=== PATIENT | female | born 1970 | race Caucasian/White ===

== ENCOUNTER 2016-09-09 07:27 | Observation (INO) | payer OTHER ==
[2016-09-09] MEDS ORDERED: NS 0.9% 1000 ML* 1,000 ML IV ONE (07:56)
[2016-09-09 08:20] LABS: Hematocrit 37 % (35-47); Hemoglobin 12.1 g/dl (12.0-16.0); Mean Corpuscular HGB Conc 32 g/dl (31-36); Mean Corpuscular Hemoglobin 28 pg (27-31); Mean Corpuscular Volume 87 fL (80-97); Mean Platelet Volume 10 um3 (7.4-10.4); Red Cell Distribution Width 15 % (10.5-15); White Blood Count 8.5 10^3/ul (3.5-10.8)
[2016-09-09 08:36] LABS: ALT 22 U/L (7-52); Albumin 3.8 g/dL (3.2-5.2); Alkaline Phosphatase 42 U/L (34-104); BUN/Creatinine Ratio 20.4 (8-20); Blood Urea Nitrogen 20 mg/dL (6-24); CO2 Carbon Dioxide 24 mmol/L (22-32); Calcium 8.8 mg/dL (8.6-10.3); Chloride 105 mmol/L (101-111); EGFR African American 78.2 (>60); EGFR Non-African American 60.8 (>60); Globulin 2.7 g/dL (2-4); Glucose 120 mg/dL (70-100); Sodium 136 mmol/L (133-145); Total Protein 6.5 g/dL (6.4-8.9)
[2016-09-09 09:03] LABS: Alcohol < 10 mg/dL (<10)
[2016-09-09 09:12] LABS: TSH (Thyroid Stimulating Horm) 1.59 mcIU/mL (0.34-5.60)
[2016-09-09 09:14] LABS: AST 28 U/L (13-39); Anion Gap 7 mmol/L (2-11); Potassium 4.5 mmol/L (3.5-5.0)
--- NOTE | 2016-09-09 10:04 | RAD ---
Indication: Seizure. CT of the brain was performed without IV contrast. Ventricular structures are midline. No midline shift is noted. The extra-axial spaces are unremarkable. There is no evidence of intracranial mass or hemorrhage. No other high or low density lesions are identified. No other high or low density lesions are noted. Mastoid air cells and paranasal sinuses are otherwise unremarkable. IMPRESSION: THERE IS NO EVIDENCE OF INTRACRANIAL MASS OR HEMORRHAGE.
[2016-09-09 11:25] LABS: Urine Bacteria Absent (Absent); Urine Bilirubin Negative (Negative); Urine Glucose Negative (Negative); Urine Nitrite Negative (Negative)
[2016-09-09] MEDS ORDERED: Acetaminophen TAB* 325 MG PO PRN (11:54)
[2016-09-09 12:24] LABS: Lithium < 0.10 mmol/L (0.6-1.2)
--- NOTE | 2016-09-09 13:37 | HP ---
HOSPITAL MEDICINE HISTORY AND PHYSICAL: DATE OF ADMISSION: 09/09/16 PRIMARY CARE PHYSICIAN: Dr. Ashraf. ATTENDING PHYSICIAN: Herberth Ceja MD *(dictation provided by Annabel Wyatt NP) CHIEF COMPLAINT: Question of seizure with altered mental status. HISTORY OF PRESENT ILLNESS: Ms. Macedo is a 46-year-old female with 2 admissions to our psychiatric unit for suicide attempt with overdose in 2016 with a history of severe borderline personality disorder who presents to the hospital today with concern for seizure. Per Ms. Macedo, she states that she was in an argument with her last evening, he lives in a RV in the front yard and had asked to come into the house because of the weather being so cold. She reports a lot of stress related to this. She was able to sleep through the night but woke up and "was in a bad way." She went out to see her in the RV and they got into an argument. She states it was not abusive or physical. She did not remember exactly, but she states that her told her that she was having a seizure. She remembers EMS picking her up and bringing her to the hospital. She states that the EMS provider was "very nice. " She denies any recent illnesses. She has had no fevers, no chills, no cough , no chest pain. No nausea, abdominal pain, or diarrhea. Ms. Macedo has had concern for seizures for some time back in 2016. She was reporting that she had up to 55 absence seizures a day. She was seen here in consultation by Dr. Munoz from Neurology who evaluated her and obtained an MRI and suspected that she did not in fact have seizures, but that she was likely having pseudoseizures or other manifestation of her psychiatric problems. He recommended that she go up to [place] for monitoring. Per Ms. Macedo, she did go for 3 days to [place] for long-term EEG monitoring and she states that nothing was found during that testing. She has an ongoing concern for Lyme disease as well and is currently taking doxycycline. In the emergency room, Ms. Macedo had normal laboratory values except for a mild elevation in her lactic acid at 2.7. EEG is underway and the patient has been seen by Dr. Covarrubias from Neurology. PAST MEDICAL HISTORY: 1. Suicide attempt x2. 2. Borderline personality disorder. 3. Question of pseudoseizures in the past. MEDICATIONS: The patient was unable to verify her medication list, but per the pharmacist at [facility], she is on: 1. Alprazolam 1 mg p.o. t.i.d. p.r.n. 2. Adderall 10 mg p.o. b.i.d. 3. Saphris 10 mg sublingually at bedtime. 4. Doxycycline 100 mg p.o. b.i.d. 5. Diazepam 20 mg p.o. b.i.d. 6. Fluoxetine 40 mg p.o. daily. 7. Lamotrigine 400 mg p.o. at bedtime. 8. [place] 300 mg p.o. b.i.d. ALLERGIES: No known drug allergies. FAMILY HISTORY: The patient states her mom and dad are still alive, but she does not know of any health history with them. SOCIAL HISTORY: No report of alcohol, tobacco, or drug use. The patient is estranged from her , but states that he would be her healthcare proxy. REVIEW OF SYSTEMS: A 14-point review of systems was completed with Ms. Macedo and all those not mentioned above were negative. PHYSICAL EXAMINATION GENERAL: Ms. Macedo is lying in the bed, she is a little bit incoherent at times. She had received Versed in the ambulance, but she is clear and able to carry on the conversation. VITAL SIGNS: Temperature 98.2, heart rate 88, respiratory rate 20, O2 saturation 97%, blood pressure 114/70. LUNGS: Clear to auscultation bilaterally with no accessory muscle use and good aeration. HEART: S1, S2. No murmur, rub, or gallop and regular. ABDOMEN: Soft, nontender with bowel sounds positive x4. EXTREMITIES: No cyanosis or edema. SKIN: Intact. NEUROLOGIC: She is alert. She is oriented x3. She moves all extremities equally. There is no facial asymmetry or focal weakness. Extraocular movements are intact. LABORATORY DATA/DIAGNOSTIC STUDIES: WBC 8.5, hemoglobin 12.1, hematocrit 37, platelet count 260. INR 0.98. Sodium 136, potassium 4.5, chloride 105, serum bicarbonate 24, BUN 20, creatinine 0.98, glucose 120, lactic acid 2.7. Urine shows trace leukocyte esterase. Serum alcohol level is 0. Lamotrigine and lithium levels are pending. CT of the brain shows no acute process. ASSESSMENT: Ms. Macedo is a 46-year-old female with a past medical history of 2 hospitalizations for overdose and borderline personality disorder who has a suspicion for pseudoseizures in the past and presents today with concern for a witnessed seizure activity per her . Plans are for observation in the hospital for the followin. Question of seizure: I do note that the patient's reported seizure activity was in the setting of severe stress in relationship to an argument with her that had been going on overnight. Regardless, plans are for EEG, which is underway now, Dr. Covarrubias from Neurology is also consulting to help us determine if this was in fact a real seizure or perhaps a manifestation of pseudoseizure. We will continue her home medications. Lamictal level is pending but will likely not be back till tomorrow. [place] level is also pending. 2. Psychiatric disorder. Again, continue Lamictal and lithium. I am holding her alprazolam, Adderall and diazepam for now as she is still somewhat sedated from Versed received en route to the hospital. 3. Lyme disease. I have no indication that the patient has a clear diagnosis of Lyme disease and certainly not an acute diagnosis. Plans are to hold doxycycline. The patient can follow up with her outpatient providers as needed. 4. DVT prophylaxis with mobility. 5. Disposition to Medical. ANNABEL WYATT NP CC: Dr. Ashraf* [id number]/[facility] #: [id number] TARI
--- NOTE | 2016-09-09 14:35 | CONS ---
CC: Alvino Ashraf MD NEUROLOGY CONSULTATION: DATE OF CONSULT: 09/09/16 REQUESTING PHYSICIAN: Dr. Jiménez in the ED. PRIMARY CARE PHYSICIAN: Alvino Ashraf MD. REASON FOR CONSULT: Seizure. HISTORY OF PRESENT ILLNESS: The patient is a 46-year-old female who was brought to the hospital after her called the EMS this morning reporting that the patient having a seizure. The information and history is gathered by some history taken from the patient and also information from her previous medical records at the [facility] medical records (no other outside records are available at this time). I have to mention that when I was trying to get history from the patient she seemed to be not fully back to her baseline and at times she was lethargic and falling asleep in the middle of conversation , or suddenly mumbling, so the full reliability of her statements is in question. Per the records, the patient had a history of seizures before. The patient tells me that she started to have seizures in 2014. She states that she usually has an aura before her seizures but is not able to provide me details of her aura. She says her last seizure was in March 2016. Looking at her medical records, it seems like she had an episode of over dosing of Lamictal and Valium (suicidal attempt) back in March 2016 and was admitted to the psych unit. At that time her had reported of up to 50 per day episodes of staring, and a Neurology consult at that time raised the question of nonepileptic seizures and recommended a long-term monitoring unit after her psychiatric issues are addressed. The patient, per the records, seems have been carrying a diagnosis of Lyme disease; however, the details of the workup and diagnosis are not very clear. Per a note from Dr. 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 The patient tells me that she is still taking doxycycline but is not able to tell me the dosage. She states that she had an MRI in the past and when I look at her records, she had an MRI in March 2016, which did not show any abnormalities. She denies having a lumbar puncture in the past. She states that she is taking Lamictal at 100 mg b.i.d.but that is mostly for her mood, she says. PAST MEDICAL HISTORY: Significant for: 1. Psychiatric diagnosis of severe borderline personality disorder. 2. As mentioned, supposedly carrying a diagnosis of chronic Lyme disease with no clear documentation of the workup 3. She has a history of alcohol dependence since 24 years old, on and off. ALLERGIES: No known drug allergies. FAMILY HISTORY: Unknown at this time. SOCIAL HISTORY: As mentioned, she seem to be on medical leave based on presumably Lyme disease now and as being mentioned, there is history of alcohol dependence. REVIEW OF SYSTEMS: A complete review of systems was performed, but the patient is not able to answer all the questions. For the most part, other than what mentioned in the HPI is negative currently. PHYSICAL EXAMINATION: Blood pressure, when I examined the patient was 114/71, heart rate 88, respiratory rate 16 and temperature 98.2. The patient currently is drowsy; however, arousable with light verbal stimulation. Her speech is slow and slightly slurred. It seems like she is still lethargic and her speech at times does not make sense; however, she answers most questions slowly but appropriately. In the middle of her answers, sometimes she may mumble or states things that do not make quite perfect sense. She is oriented to year but not to month or day. She is oriented to place and self. Pupils are symmetric and reactive to light. Extraocular movements are intact. Face is symmetric. Tongue is in midline. No clear laceration is seen in the tongue. There is probably some perioral swelling. Strength seem full and 5/5 throughout as much as the patient is cooperative. Sensation grossly is intact to light touch and pinprick in the upper and lower extremities. LABORATORY DATA: WBC 8.5, hemoglobin 12.1, hematocrit 37, platelets 260. INR was 0.98. Sodium 136, potassium 4.5, chloride 105, BUN 20, creatinine 0.98, glucose 120, AST 28, ALT 22, alkaline phosphatase 42, magnesium 2. Urine is negative. Toxicology shows lithium less than 0.1 and alcohol serum less than 10. No other urine toxicology results is available at this time. IMAGING: A CT scan of the head unremarkable and as mentioned, she had an MRI in March 2016, which was also unremarkable. The level of lamotrigine is pending. ASSESSMENT AND PLAN: The patient is a 46-year-old female with a supposedly diagnosis of Lyme disease, which as mentioned above, the exact history or documentation of that is unclear. The history of her seizures is also unclear. Patient mentions she had a history of seizures in the past but is on lamotrigine mostly for her mood. Considering the previous history of overdose of medications including lamotrigine, and also suspicion of non-epileptic seizures in the past, I am not certain whether today's episode was also an epileptic seizure or not, or whether she had any overdose of her medications causing current lethargy. An EEG done today did not show any epileptiform discharges and the recording was in fact normal. Until further history becomes available and the patient becomes more coherent, I would continue just the current home medications and will await the result of the lamotrigine level for further recommendations for AEDs. She probably needs a terminal system operator continuous video-EEG monitoring for characterization of her events, if they are frequent enough to be captured. Neurology will follow. [id number]/[facility] #: [id number] TARI
--- NOTE | 2016-09-09 16:25 | PN ---
Progress Note - Progress Note Note: Annabel Edmundo asked me to help evaluate this patient for capacity as her wanted to take her to [facility] for admission. In the room the was verbally aggressive and did not want me to ask too many questions of the patient. I did note that she was alert and oriented x 3. She did initially say she agreed that she wanted to go to [place] but then there was concern by the nurse that she seem to feel intimidated by her . Indeed she apparently had an argument with him after I left the room and then he stormed out saying he was done with her. I came back in and she said she wanted to stay at [facility] and did not want her back in the room. I honored her wishes and he was escorted out of the building.
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
[2016-09-09] MEDS ORDERED: lamoTRIgine TAB(*) 100 MG PO SCH (21:00)
[2016-09-09] MEDS: Lithium Carbonate TAB* 300 MG PO SCH (22:10)
--- NOTE | 2016-09-09 22:29 | EEG ---
CC: Dr. Ashraf ELECTROENCEPHALOGRAPHY: DATE OF STUDY: 09/09/16 REQUESTING PHYSICIAN: Dr. Jiménez in the ED. CLINICAL PROBLEM: The patient is an 46-year-old female with and extensive psychiatric history in the past and supposedly Lyme disorder who presented with probably a breakthrough seizure. She has been having a prolonged postictal state, that is why an EEG was ordered to rule out subclinical seizures. REPORT: This digital EEG was recorded using 21 scalp and ear, and two EKG electrodes. It was reviewed in referential and bipolar montages following reformatting in the 10-20 international electrode placement system. In the most stimulated state, the background consists of 25-35 microvolts, 8-9 Hz posterior dominant rhythm with adequate reactivity to eye opening. Faster frequencies including 5-15 microvolts, 12-20 Hz activity seen in the frontal leads. During drowsiness, there is emergence of theta and delta rhythms, but no clear sleep was achieved during this study. CLINICAL IMPRESSION: This routine EEG in the awake and drowsy states is within the range of normal variation. COMMENT: Lack of epileptiform discharges does not necessarily exclude the clinical diagnosis of epilepsy. Clinical coordination is recommended. [id number]/[facility] #: [id number] MTDD
[2016-09-10 08:09] VITALS: BP 101/70
[2016-09-10] MEDS: Lithium Carbonate TAB* 300 MG PO SCH (08:21)
[2016-09-10] MEDS ORDERED: FLUoxetine CAP* 20 MG PO SCH (09:00)
[2016-09-10] MEDS ORDERED: Benzocaine/Menthol LOZ* 1 LOZENGE MT PRN (09:52)
[2016-09-10] MEDS ORDERED: DOXYcycline CAP(*) 100 MG PO ONE (10:08)
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
== END 2016-09-10 12:30 | disposition left against medical advice (07) ==
LOC: ED 07:27 → MED 10:17
PROVIDERS: ADMIT Hospitalist; ATTEND Hospitalist
DX: R41.82 Altered mental status, unspecified (principal); R74.0 Nonspecific elevation of levels of transaminase and lactic acid dehydrogenase [LDH]; F60.3 Borderline personality disorder; F10.20 Alcohol dependence, uncomplicated; G40.909 Epilepsy, unspecified, not intractable, without status epilepticus; Z79.899 Other long term (current) drug therapy; Z87.891 Personal history of nicotine dependence
CPT/HCPCS: 36415; 70450; 80053; 80175; 80178; 80320; 81003; 81015; 83605; 83735; 84443; 85025; 85610; 87086; 93005; 95816; 96360; 99285; A9270-GY; G0378; G0480

== ENCOUNTER 2016-10-04 10:17 | Emergency (ER) | payer OTHER ==
[2016-10-04 11:15] VITALS: BP 122/86
[2016-10-04 11:54] LABS: Benzodiazepine Urine Screen Presumptive Positive (None Detect)
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
[2016-10-04 12:20] LABS: Urine Bacteria 1+ (Absent); Urine Bilirubin Negative (Negative); Urine Glucose 1+(50 mg/dL) (Negative); Urine Nitrite Negative (Negative)
--- NOTE | 2016-10-04 12:26 | RAD ---
Indication: Headaches, head injury and facial injury. CT of the facial bones was obtained in the axial plane. Sagittal and coronal reconstructed images were obtained. The mandible appears to be intact with no evidence of fracture. Temporomandibular joints are grossly unremarkable. The maxilla demonstrates no evidence of abnormal signal. Pterygoid plates are unremarkable. Zygomatic arch is otherwise unremarkable. Paranasal sinuses are unremarkable. Mucus retention cysts are noted in the right maxillary sinus. The ostiomeatal units appear patent. Right-sided debbie bullosa is noted. IMPRESSION: Mucous RETENTION CYST IN THE RIGHT MAXILLARY SINUS. THE OSTIOMEATAL UNITS APPEAR PATENT. RIGHT-SIDED DEBBIE BULLOSA IS NOTED.
[2016-10-04 12:32] LABS: Hematocrit 41 % (35-47); Mean Corpuscular HGB Conc 32 g/dl (31-36); Mean Corpuscular Hemoglobin 28 pg (27-31); Mean Corpuscular Volume 88 fL (80-97); Mean Platelet Volume 9 um3 (7.4-10.4); Red Blood Count 4.63 10^6/ul (4.0-5.4); Red Cell Distribution Width 17 % (10.5-15); White Blood Count 11.4 10^3/ul (3.5-10.8)
[2016-10-04 12:49] LABS: ALT 18 U/L (7-52); AST 31 U/L (13-39); Albumin 4.3 g/dL (3.2-5.2); Alkaline Phosphatase 59 U/L (34-104); Anion Gap 7 mmol/L (2-11); BUN/Creatinine Ratio 10.7 (8-20); Blood Urea Nitrogen 23 mg/dL (6-24); CO2 Carbon Dioxide 24 mmol/L (22-32); Calcium 8.5 mg/dL (8.6-10.3); Chloride 101 mmol/L (101-111); EGFR African American 31.8 (>60); EGFR Non-African American 24.7 (>60); Globulin 2.9 g/dL (2-4); Glucose 127 mg/dL (70-100); Potassium 3.8 mmol/L (3.5-5.0); Sodium 132 mmol/L (133-145); Total Protein 7.2 g/dL (6.4-8.9)
[2016-10-04 13:34] LABS: Acetaminophen < 15 mcg/mL; Alcohol < 10 mg/dL (<10); Salicylate < 2.50 mg/dL (<30)
[2016-10-04 13:45] LABS: TSH (Thyroid Stimulating Horm) 1.35 mcIU/mL (0.34-5.60)
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
== END 2016-10-04 19:02 | disposition home or self-care (01) ==
LOC: ED 10:17
DX: M54.9 Dorsalgia, unspecified (principal); J02.9 Acute pharyngitis, unspecified; F17.210 Nicotine dependence, cigarettes, uncomplicated; S00.93XA Contusion of unspecified part of head, initial encounter; Y09 Assault by unspecified means; Y93.9 Activity, unspecified; Y92.9 Unspecified place or not applicable
CPT/HCPCS: 36415; 70450; 70486; 80053; 80307; 80320; 80329; 81003; 81015; 84443; 85025; 87086; 99283; G0480

== ENCOUNTER → 2017-01-24 12:27 | Emergency (ER) | payer OTHER ==
[~2017-01-24 12:27] MED LIST: LORazepam TAB(*) 1 MG PO ONE
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
[2017-01-24 13:35] LABS: Hematocrit 42 % (35-47); Hemoglobin 13.5 g/dl (12.0-16.0); Mean Corpuscular HGB Conc 32 g/dl (31-36); Mean Corpuscular Hemoglobin 28 pg (27-31); Mean Corpuscular Volume 87 fL (80-97); Mean Platelet Volume 9 um3 (7.4-10.4); Red Blood Count 4.83 10^6/ul (4.0-5.4); Red Cell Distribution Width 15 % (10.5-15); White Blood Count 7.4 10^3/ul (3.5-10.8)
[2017-01-24 13:56] LABS: ALT 10 U/L (7-52); AST 18 U/L (13-39); Albumin 4.5 g/dL (3.2-5.2); Alkaline Phosphatase 49 U/L (34-104); Anion Gap 7 mmol/L (2-11); Blood Urea Nitrogen 13 mg/dL (6-24); CO2 Carbon Dioxide 25 mmol/L (22-32); Calcium 9.1 mg/dL (8.6-10.3); Chloride 105 mmol/L (101-111); EGFR African American 97.5 (>60); EGFR Non-African American 75.8 (>60); Globulin 3.2 g/dL (2-4); Glucose 119 mg/dL (70-100); Potassium 4.3 mmol/L (3.5-5.0); Sodium 137 mmol/L (133-145); Total Protein 7.7 g/dL (6.4-8.9)
[2017-01-24 14:00] LABS: Urine Bacteria Absent (Absent); Urine Bilirubin Negative (Negative); Urine Glucose Negative (Negative); Urine Nitrite Negative (Negative)
[2017-01-24 14:01] LABS: Benzodiazepine Urine Screen Presumptive Positive (None Detect)
[2017-01-24 14:16] LABS: Acetaminophen < 15 mcg/mL; Alcohol < 10 mg/dL (<10); Salicylate < 2.50 mg/dL (<30)
[2017-01-24 14:26] LABS: TSH (Thyroid Stimulating Horm) 2.07 mcIU/mL (0.34-5.60)
[2017-01-24 17:59] VITALS: BP 111/70
== END | disposition home or self-care (01) ==
LOC: ED 12:27
DX: R11.0 Nausea (principal); F41.9 Anxiety disorder, unspecified; F32.9 Major depressive disorder, single episode, unspecified; Z87.891 Personal history of nicotine dependence
CPT/HCPCS: 36415; 80053; 80307; 80320; 80329; 81003; 81015; 84443; 85025; 87086; 99284; A9270-GY; G0480